=== PATIENT | male | born 1995 | race Caucasian/White ===

== ENCOUNTER 2017-09-21 15:39 | Emergency (ER) | payer BC ==
[~2017-09-21] VITALS: Ht 180.3 cm; Wt 81.6 kg
[2017-09-21 17:22] LABS: HEMATOCRIT 41.1 % (38.0-50.0); HEMOGLOBIN 14.2 G/DL (12.5-16.6); MCH 31.3 PG (29.0-34.0); MCHC 34.5 G/DL (30.0-36.0); MCV 90.7 FL (86-99); PLATELET COUNT 318 K/uL (156-360); RBC DIS.WIDTH-CV 12.4 % (11.8-14.6); RBC DIS.WIDTH-SD 40.8 % (39-53); RED BLOOD COUNT 4.53 M/uL (4.00-5.50); WHITE BLOOD COUNT 6.7 K/uL (4.1-10.2)
[2017-09-21 17:33] LABS: CHLORIDE 107 mEq/L (99-109); POTASSIUM 4.1 mEq/L (3.7-5.4); SODIUM 139 mEq/L (136-147)
[2017-09-21 17:34] LABS: GLUCOSE 90 mg/dL (70-99)
[2017-09-21 17:38] LABS: CREATININE 0.9 mg/dL (0.6-1.3); GFR ESTIMATE (CALCULATED) > 59 mL/min/ (58.99-99999)
[2017-09-21 17:39] LABS: UREA NITROGEN (BUN) 12 mg/dL (9-23)
[2017-09-21 19:06] LABS: APPEARANCE CLEAR ((CLEAR)); BILIRUBIN NEGATIVE; BLOOD NEGATIVE; COLOR YELLOW ((YELLOW)); GLUCOSE (STRIP) NEGATIVE; KETONES NEGATIVE; LEUKOCYTES NEGATIVE; NITRITE NEGATIVE; PROTEIN (STRIP) NEGATIVE; SPECIFIC GRAVITY 1.014 (1.000-1.030); UCUL ADDED? NO; UROBILINOGEN 0.2 MG/DL (0.2-1.0)
[2017-09-21] MEDS ORDERED: ZOFRAN4 MG PO (21:47)
[2017-09-21] MEDS ORDERED: BENTYL10 MG PO (21:47)
[2017-09-21 21:58] VITALS: BP 135/84
== END 2017-09-21 21:59 | disposition home or self-care (01) ==
LOC: EME 15:39
DX: R10.12 Left upper quadrant pain (principal); R11.2 Nausea with vomiting, unspecified; R19.7 Diarrhea, unspecified
CPT/HCPCS: 74176; 80048; 81003; 85027; 99281; 99283